=== PATIENT | female | born 1985 | race Caucasian/White ===

== ENCOUNTER → 2019-12-18 | Day surgery (SDC) | payer OTHER ==
[~2019-12-18] MED LIST: CHOL200078 PO; IBUP400T99 PO; IPRATRPIUM/ALBUTEROL 0.5/2.5MG 3 ML NEBU. NEB PRN; IV RINGERS SOLUTION,LACTATED 1,000 ML IV SCH; ONDANSETRON PF 4 MG/2 ML VIAL. IV PRN; PROPOFOL 40 ML IV ONE
[2019-12-18 10:52] LABS: U PREG PATIENT NEGATIVE (NEG)
[2019-12-18 12:20] VITALS: BP 114/59
--- NOTE | 2019-12-22 15:08 | PATHOLOGY ---
[facility] Accession Number: [id number] . 01 Material submitted: . stomach - ANTRUM . 01 Clinical history: . R/O H. pylori . 02 Diagnosis: Gastric biopsies, antrum: - Chronic gastritis, mild. LBQ 12/22/2019 1143 Local . 02 Comment: Sections of the gastric antral biopsy show congestion and mild chronic inflammation. A properly controlled immunoperoxidase stain for Helicobacter is negative for Helicobacter organisms. (JPM/db; 12/22/2019) . Special stain performed: Immunoperoxidase stain for Helicobacter . 02 Electronically signed: . Álvaro Hinds MD, Pathologist NPI- [id number] . 01 Gross description: . The specimen is received in formalin, labeled "Lauren Singleton, antrum, R/O H. pylori". Received are two segments of pale vera soft tissue ranging in size from 0.4 to 0.5 cm in maximum dimensions. The specimen is submitted entirely in cassette A1. (CAA; 12/19/2019) QAC/QAC 12/19/2019 1913 Local . 02 Pathologist provided ICD-10: K29.50 . 02 CPT . 610953, [id number] Specimen Comment: A courtesy copy of this report has been sent to [phone], [phone] Specimen Comment: [phone] Specimen Comment: Report sent to / DR TIWARI Performed at: 01 [facility] [address] [facility] [address], [place] [id number] MD Carlos Montilla MD Phone: [phone] Performed at: 02 [facility] [address] [place], [place] [id number] MD Álvaro Hinds MD Phone: [phone]
== END ==
LOC: SURG 08:57
PROVIDERS: ATTEND Internal Medicine Gastroenterology
DX: Z12.11 Encounter for screening for malignant neoplasm of colon (principal); K57.32 Diverticulitis of large intestine without perforation or abscess without bleeding; K57.30 Diverticulosis of large intestine without perforation or abscess without bleeding; Z83.71 Family history of colonic polyps
CPT/HCPCS: 43239; 45378; 81025; 88305; 88342; J2704; J7120